=== PATIENT | male | born 1950 | race Caucasian/White ===

== ENCOUNTER 2017-02-04 20:24 | Emergency (ER) | payer MEDICARE, BC ==
[~2017-02-04] VITALS: Ht 172.7 cm; Wt 104.5 kg
[2017-02-04 20:31] VITALS: TEMP 97.9
[2017-02-04 21:14] LABS: BASO # 0.1 (0.0-0.2); BASO % 0.6 % (0.0-2.0); EOS # 0.2 (0.0-0.7); EOS % 1.7 % (0-4.0); GRAN # 5.9 (1.4-6.5); GRAN % 60.7 % (42.2-75.2); HEMATOCRIT 41.5 % (42.0-52.0); HEMOGLOBIN 13.9 g/dl (13.5-18.0); LYMPH # 2.8 (1.2-3.4); LYMPH % 28.4 % (20.0-51.0); MEAN CELL VOLUME 91 fl (80.0-100.0); MEAN CORPUSCULAR HEMOGLOBIN 31 pg (27.0-31.0); MEAN CORPUSCULAR HGB CONC 34 g/dl (33.0-37.0); MEAN PLATELET VOLUME 10.3 fl (7.4-10.4); MONO # 0.7 (0.1-0.6); MONO % 7.6 % (1.7-9.3); PLATELET COUNT 244 K/mm3 (130-400); RED BLOOD COUNT 4.56 M/mm3 (4.20-5.60); REDCELL DISTRIBUTION WIDTH-CV 13.9 % (11.5-14.5); WHITE BLOOD COUNT 9.8 K/mm3 (4.8-10.8)
[2017-02-04 21:21] LABS: INR 1.1 (0.8-3.0); PROTHROMBIN TIME 11.8 SECONDS (9.7-12.8)
[2017-02-04 21:22] LABS: ADJUSTED CALCIUM 9.1 mg/dL (8.4-10.2); ALANINE AMINOTRANSFERASE 33 U/L (21-72); ALBUMIN 4.6 gm/dL (3.5-5.0); ALKALINE PHOSPHATASE 64 U/L (50-136); ANION GAP 18 mmol/L (7-16); BILIRUBIN,TOTAL 0.6 mg/dL (0.0-1.0); BLOOD UREA NITROGEN 13 mg/dL (9-20); CALCIUM 9.6 mg/dL (8.4-10.2); CARBON DIOXIDE 22 mmol/L (22-30); CHLORIDE 96 mmol/L (98-107); GLUCOSE 114 mg/dL (74-106); POTASSIUM 3.4 mmol/L (3.4-5.0); SODIUM 136 mmol/L (137-145); TOTAL PROTEIN 7.8 gm/dL (6.4-8.2)
[2017-02-04 21:24] LABS: PARTIAL THROMBOPLASTIN TIME 28.2 SECONDS (26.0-37.0)
[2017-02-04 21:33] LABS: B-TYPE NATRIURETIC PEPTIDE 60 pg/mL (0-125)
[2017-02-04 21:34] LABS: TROPONIN-I < 0.012 ng/mL (0.000-0.034)
[2017-02-04] MEDS ORDERED: ZITHROMAX Z PA250 MG PO (22:45)
[2017-02-04] MEDS ORDERED: PREDNISONE20 MG PO (22:45)
[2017-02-04] MEDS ORDERED: PROAIR HFA0.09 MG/AC IH (23:09)
[2017-02-04 23:10] VITALS: BP 138/76; PULSE 98
== END 2017-02-04 23:10 | disposition home or self-care (01) ==
LOC: COL.ER 20:24
PROVIDERS: Emergency Medicine
DX: J44.1 Chronic obstructive pulmonary disease with (acute) exacerbation (principal); R55 Syncope and collapse; J30.2 Other seasonal allergic rhinitis; I10 Essential (primary) hypertension; F17.210 Nicotine dependence, cigarettes, uncomplicated
CPT/HCPCS: J7512

== ENCOUNTER → 2021-10-01 | Outpatient (CLI) | payer MEDICARE, BC ==
[~2021-10-01] MED LIST: PREDNISONE20 MG PO; PROAIR HFA0.09 MG/AC IH; ZITHROMAX Z PA250 MG PO
== END ==
LOC: COL.RAD 12:40
DX: Z12.2 Encounter for screening for malignant neoplasm of respiratory organs (principal); J43.9 Emphysema, unspecified; F17.210 Nicotine dependence, cigarettes, uncomplicated

== ENCOUNTER → 2023-12-28 | Outpatient (CLI) | payer MEDICARE, BC ==
[~2023-12-28] MED LIST changes: +CEPHALEXIN500 M1 PO; +PERCOCET 325 MG1 TA2 PO
== END ==
LOC: COL.RAD 14:41
DX: Z12.2 Encounter for screening for malignant neoplasm of respiratory organs (principal); F17.200 Nicotine dependence, unspecified, uncomplicated